=== PATIENT | female | born 1965 | race Caucasian/White ===

== ENCOUNTER 2018-07-25 05:17 | Inpatient (IN) ==
[2018-07-25] MEDS ORDERED: LIDOCAINE W/ SODIUM BICARB 0.5 ML SYR ONE (05:27)
[2018-07-25] MEDS ORDERED: Vancomycin Inj 1gm vial ONE ×3 (05:27→07:02)
[2018-07-25] MEDS ORDERED: Sodium Chloride 0.9% 250 ML ONE ×3 (05:27→06:57)
[2018-07-25] MEDS ORDERED: Lactated Ringers 1,000 ML PRIMARY IV ONE ×4 (05:27→12:50)
[2018-07-25] MEDS ORDERED: Nasal Sanitizer POPSWAB ampule 3 AMP (Nozin) PREOP DOSE ENOS SCH (06:00)
[2018-07-25] MEDS ORDERED: LIDOCAINE W/ SODIUM BICARB 0.5 ML SYR SUBD ONE (06:00)
[2018-07-25] MEDS ORDERED: Clindamycin 900mg (Premix) 900 MG/50 ML BAG IV ONE ×2 (06:33→08:00)
[2018-07-25] MEDS ORDERED: fentaNYL Inj 100 MCG/2 ML VIAL ONE (06:48)
[2018-07-25] MEDS ORDERED: MIDAZOLAM 5 MG/1 ML ONE (06:48)
[2018-07-25] MEDS ORDERED: REMIFENTANIL HCL 2 MG VIAL IV ONE ×3 (06:49→13:57)
[2018-07-25] MEDS ORDERED: ROCURONIUM 10 MG/1 ML - 5 ML VIAL IVP ONE (06:49)
[2018-07-25] MEDS ORDERED: REMIFENTANIL 1 MG/1 ML IV ONE ×3 (06:49→13:57)
[2018-07-25] MEDS ORDERED: KETAMINE HCL 100 MG/2 ML SYRINGE IV ONE (06:50)
[2018-07-25] MEDS ORDERED: Sodium Chloride 0.9% vial 50 ML ONE (07:01)
[2018-07-25] MEDS ORDERED: BACITRACIN 50,000 UNIT VIAL IRRIG ONE (07:02)
[2018-07-25] MEDS ORDERED: Gentamicin Inj 40 MG/ML VIAL ONE (07:02)
[2018-07-25 07:13] LABS: BILIRUBIN,URINE NEGATIVE (NEG); CLARITY,URINE CLEAR (CLEAR); COLOR,URINE YELLOW (Y); GLUCOSE, URINE (UA) NEGATIVE (NEG); OCCULT BLOOD,URINE NEGATIVE (NEG); PROTEIN,URINE NEGATIVE (NEG); UROBILINOGEN,URINE 0.2 EU/dL (0.2)
[2018-07-25 07:14] LABS: URINE SAMPLE TYPE CLEAN CATCH URINE
[2018-07-25] MEDS ORDERED: HYDROXYZINE IM ONE (07:26)
[2018-07-25] MEDS ORDERED: BUPIVACAINE 0.25% W/ EPI - 10 ML VIAL ONE (08:12)
[2018-07-25] MEDS ORDERED: DEXAMETHASONE PF 10 MG/1 ML VIAL ONE (08:25)
[2018-07-25] MEDS ORDERED: PROPOFOL 10 MG/1 ML (200 MG/20 ML) VIAL IV ONE (13:26)
[2018-07-25] MEDS ORDERED: Sodium Chloride 0.9% vial 10 ML ONE (13:56)
--- NOTE | 2018-07-25 14:34 | CRNA.PROGR ---
Anesthesia Time - Procedure/Recovery Time Start Date: 07/25/18 End Date: 07/25/18 Anesthesia : Time In: 07:30 Anesthesia : Time Out: 17:10 Anesthesia : Total Time: 580 - Total Anesthesia Time Total Anesthesia Time (minutes): 580 - Other Weight: 69.853 kg Height: 5 ft 3 in Body Mass Index (BMI): 27.3 Physical Status: P2 Anesthesia Type: General Anesthesia : ET (NIMS Technique)
[2018-07-25] MEDS ORDERED: fentaNYL Inj 100 MCG/2 ML VIAL IVP PRN (14:35)
[2018-07-25] MEDS ORDERED: LIDOCAINE W/ SODIUM BICARB 0.5 ML SYR SUBD PRN (14:35)
[2018-07-25] MEDS ORDERED: ONDANSETRON 4 MG/2 ML VIAL IVP PRN ×2 (14:35→18:54)
[2018-07-25] MEDS ORDERED: ATROPINE SULFATE 0.4 MG/1 ML VIAL IVP PRN (14:35)
[2018-07-25] MEDS ORDERED: Ondansetron ODT Tab 8 MG TAB PO PRN (14:35)
--- NOTE | 2018-07-25 14:35 | CRNA.PROGR ---
Anesthesia Recovery Phase I - Post Anesthesia Evaluation Patient's Condition on Arrival in Phase I: Stable (medicted, post suction and extubation) Patient's Condition on Arrival in Phase II: Stable Pain Level: 5
[2018-07-25] MEDS ORDERED: Lactated Ringers 1,000 ML PRIMARY IV SCH (14:45)
[2018-07-25] MEDS ORDERED: Propofol 1,000 MG/100 ML VIAL IV ONE (14:54)
[2018-07-25] MEDS ORDERED: ONDANSETRON 4 MG/2 ML VIAL ONE (15:04)
[2018-07-25] MEDS ORDERED: BUPivacaine Inj 0.25% PF - 10ml vial ONE (15:14)
[2018-07-25] MEDS ORDERED: BUPivacaine Liposome/PF (Exparel) Inj 20ml vial INFIL ONE (15:14)
[2018-07-25] MEDS: HYDROmorphone 2 MG/1 ML IVP PRN ×6 (17:15→23:56)
[2018-07-25] MEDS ORDERED: HYDROmorphone 2 MG/1 ML ONE ×2 (17:15→17:32)
--- NOTE | 2018-07-25 17:19 | CRNA.PROGR ---
Post Anesthesia Phase II - Post Anesthesia Phase II Patient Stable and Discharged To: Med/Surg Care Assumed By Surgeon: Gio Wang MD Temperature: 97 F Pulse Rate: 72 Respiratory Rate: 14 Blood Pressure: 114/82 Pulse Ox: 97 Total Mary Score at Discharge: 9 Post Anesthesia Discharge Criteria Met: Yes Additional Details: Received Hydromorphone 4 mg and 2.5 mg Diazepam for pain in pacu. Did well to floor.
--- NOTE | 2018-07-25 17:28 | GEN.OPNOTE ---
Operative Note Surgery Date: 07/25/18 Preoperative Diagnosis: 1. Chronic low back pain. 2. Chronic bilateral lower extremity symptoms. 3. Chronic numbness and weakness of the left leg ever since her first lumbar surgical procedure. 4. Widening of the L2-3 facet joints above her L3-4 lumbar interbody and posterolateral instrumented fusion. 5. Status post L4-S1 hardware removal and L3-4 transforaminal lumbar interbody and posterolateral instrumented fusion. 6. Status post L4-S1 interbody and posterolateral instrumented fusion. Postoperative Diagnosis: 1. Chronic low back pain. 2. Chronic bilateral lower extremity symptoms. 3. Chronic numbness and weakness of the left leg ever since her first lumbar surgical procedure. 4. Widening of the L2-3 facet joints above her L3-4 lumbar interbody and posterolateral instrumented fusion. 5. Status post L4-S1 hardware removal and L3-4 transforaminal lumbar interbody and posterolateral instrumented fusion. 6. Status post L4-S1 interbody and posterolateral instrumented fusion. Procedure: 1.) Removal of posterolateral hardware, L3-4. (CPT code: 49340). 2.) Partial laminectomy, L2-3 with medial facetectomies and foraminotomies bilaterally for decompression of the lumbar spinal canal, lateral recesses, and neuroforamen bilaterally. (CPT code: 63203). 3.) Redo laminectomy, L3 with medial facetectomies and foraminotomies bilaterally. (CPT code: 58402). 4.) Arthrodesis, combined posterolateral and posterior interbody technique, L2-3 for interbody and posterolateral fusion L2-3. (CPT code: 29720). 5.) Insertion of an 11mm x 11mm x 28mm Triatanium PL titanium lumbar interbody cage filled in the center with autograft into the L2-3 interspace for fusion of the L2-3 interspace. (CPT code: 31205). 6.) Arthrodesis, posterolateral bilaterally, L3-4 for posterolateral fusion L3-4. (CPT code: 39714). 7.) Segmental posterolateral instrumentation, L2-L4 using LMN-1 Sammy 3 pedicle screw and terrie system. (CPT code: 82300). 8.) Use of autograft harvested from the same incision, cleaned of soft tissue and morselized for interbody and posterolateral fusion. (CPT code: 17560). 9.) Use of medium Medtronic INFUSE bone morphogenic protein (implantable allograft), 2cc [employer] Active Matrix AM200 (implantable allograft), 20cc SteMinor BIO DBM Plus Putty with cancellous (implantable allograft), and 30cc cancellous bone chips (implantable allograft) for interbody and posterolateral fusion. (CPT code: 16603). 10.) Use of LMN-1 computer assisted neuronavigation system for cannulization of the L2 pedicles bilaterally for the subsequent placement of the L2 pedicle screws bilaerally. (CPT code: 57105). 11.) Use of intra-operative fluoroscopy for localization of the correct surgical level, for confirmation of final position of intervertebral cage, and for confirmation of final position of posterolateral hardware elements. 12.) Use of neuromonitoring including free running EMG's, triggered EMG's, and SSEP's. Surgeon: Gio Wang MD Ophthalmic Asst: MARTHA Zaragoza Anesthesia Provider: Asya Hanks CRNA Anesthesia Type: General Estimated Blood Loss (mL): 650 Fluids: See anesthesia record Pathology: None Indications: Ms. 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 In 2011, she underwent an L4-5 and L5-S1 lumbar interbody and posterolateral instrumented fusion by Dr. Pablo. She did well after that surgery. She then became symptomatic with back and leg symptoms and underwent an L4-S1 hardware removal by Dr. Villatoro and an L3-4 interbody and posterolateral instrumented fusion and that was performed in April 2016. Ms. Gutierrez underwent a hardware block by Dr. Gong on April 16, 2018 that relieved her pain almost 100% for 7 days. Ms. Gutierrez came to me wanting her hardware removed. I did discuss at her initial visit, however, with Ms. Gutierrez that based on her lumbar myelogram and post myelogram CT performed at [facility] on 01/17/18 that she did have question of whether she was totally fused at the L3-4 level secondary to some lucency along the superior aspect of the cage and the inferior aspect of the L3 vertebral body although there did appear to be posterolateral fusion mass but not as robust at L4-S1. I also discussed with her that I was concerned that the facet arthropathy at L2-3 above her fused levels which were widened might be causing some of he pain and she did undergo diagnostic L2-3 facet blocks with local anesthetic only which did relief her pain. We discussed proceeding with a L3-4 hardware removal; L2-3 transforaminal lumbar interbody fusion; L2-4 posterolateral instrumented fusion which she wished to undergo and she presents for that procedure today. Findings: 1.) Facet arthropathy/hypertrophy L2-3 bilaterally. 2.) Bilateral L2-3 and L3-4 lateral recess stenosis bilaterally. Complications: Small incidental durotomy sewn up primarily with 6-0 prolene suture Operative Summary: Ms. Gutierrez was met in the preoperative area. Her surgical history and physical was reviewed. The procedure to be performed was confirmed with Ms. Gutierrez and we were in agreement on the procedure to be performed and this matched what was written on the patient's consent form. Any questions that Ms. Gutierrez had were answered before she was taken back to the operating room suite. Ms. Gutierrez was brought back to the operating room suite and put under general anesthesia and intubated by the anesthesia staff. She had a Landrum catheter plac ed in her bladder for the procedure. She had pneumatic compression hose placed on her lower legs bilaterally. Ms. Gutierrez was carefully rolled over onto the Levy surgical table with her arms gently positioned upwards with her shoulders abducted less than 90. Her arms were well-padded with foam padding on top of the padding the surgical armboards. The region of her chest and axilla was checked bilaterally to make sure that there no pressure points over the region of the brachial plexus bilaterally. Her breasts were checked be below the chest pad of the Levy table with no pressure points over the nipples. All bony prominences were well padded. Her Landrum catheter was checked be free from kinks. Her pneumatic compression hose was attached and pneumatic compression device. Mr. Gutierrez's incision from her previous surgeries was demarcated with a skin marker and extended rostrally in order to expose the intended surgical level as well as the hardware from her previous lumbar fusion. Ms. Gutierrez was prepped and draped in the usual and standard fashion. Ms. Gutierrez had been given 180 mL of 1 g of vancomycin in 250 mL IV for justine-operative antibiosis but this was stopped when she started to develop a progressively worsening skin rash. She was given 900 mg of Cleocin IV for perioperative antibiosis. She was given 10 mg of Decadron IV. A standard surgical timeout was performed identifying the correct patient, the correct procedure, and the correct equipment being available for the procedure. The intended skin incision was injected subcutaneously with quarter percent Marcaine with 1 in 200,000 epinephrine. 20 mL of local anesthetic was used. This skin was incised with a 10 blade scalpel and all dermal and superficial subcutaneous bleeding points were controlled with bipolar cautery. Dissection was continued through the subcutaneous tissue and scar tissue with Bovie cautery down to the lumbar fascia. The lumbar fascia was incised with Bovie cautery along the spinous processes and out over the lamina in the rostral aspect of the surgical dissection in the normal tissue planes. In the more caudal aspect of the surgical site, in the region of the patient's previous surgery, the dissection was taken out laterally earlier as the dissection proceeded ventrally to avoid entry into any previous decompressed areas of the spinal canal. The patient's hardware was identified laterally. Continued dissection was performed exposing from the L1 lamina, the L2 lamina, and out over the L1-2 facet joint bilaterally and out laterally over the L2 transverse process bilaterally. The patient's L3-4 hardware elements were dissected out bilaterally using Bovie cautery and a large Leksell rongeur. Dissection was then continued laterally to the hardware construct out over the L3 and L4 transverse processes bilaterally. Soft tissue was cleaned over the posterior aspect of the spine in the normal tissue planes of the rostral part of the surgical dissection using a large straight curette and large Leksell rongeur. And the caudal aspect of the surgical dissection and the region the patient's previous surgery the hardware was completely dissected out as stated. There was bone product found medial to the hardware elements bilaterally that was coalesced bone product but that was not fully solidified into bone. The patient's set screws over the rods in the tulips of the L3 and L4 pedicle screws were removed bilaterally. The rods were then removed. The L3 and L4 pedicle screws were then gently tugged on bilaterally with visual inspection to determine whether there was any movement between the L3 and L4 levels and none was identified. Soft tissues/carts tissue was removed from beneath where the rods had been between the pedicle screws. There was no bone identified on the left consistent with the imaging studies demonstrating what appeared to be a complete foraminotomy at this level to removal of the overlying facet joint. There was bone identified however on the right between the pedicle screws. Extensive decortication was then performed of the L2 transverse processes bilaterally and the lateral aspect of the L1-2 facet joints bilaterally and of the L3 and L4 transverse processes bilaterally as well as the bone between the L3 and L4 pedicle screw on the right and the bone that had been exposed below the L4 pedicles bilaterally. All decortication was performed with the [employer] high-speed [place] drill with a matchstick bit. The bone dust created was collected and saved to be used as autograft during the fusion portion of the procedure. The LMN-1 neuro navigation reference arc was securely attached to the L1 spinous process and a spin was performed with the be2 3-D fluoroscopy unit. The LMN-1 neuro navigation pedicle finder was then used to cannulate the L2 pedicles bilaterally. The internal aspect of the L2 pedicles were palpated with a small ball-tip instrument. The pedicles were small, measuring only about 5.5 mm bilaterally and therefore 4.5 mm x 45 mm length pedicle screws were planned to be placed in the pedicles. Because the small screw diameter of the pedicles were not tapped and the 4.5 x 45 mm pedicle screws were placed into the L2 pedicles bilaterally. The pedicle screws obtained good purchase in the pedicle and vertebral body bone. Pedicle screws were then all interrogated with tr iggered EMGs with the lowest recording being the right L4 pedicle screw which was 21 mA in impedance indicating that the pedicle screws were indeed not and proximity to nerve structures. Another spin was performed with the [employer] 3-D fluoroscopy unit providing further confirmation of the pedicle screws were contained within the confines of the pedicles and the pedicle screws were bicortical or nearly and bicortical in purchase as intended. A partial L2 laminectomy with medial facetectomies and foraminotomies was performed with a high-speed drill with a matchstick bit as well as with various size Kerrison punches. A small durotomy occurred in the left posterior aspect of the dura measuring approximately 4 mm. This was sewn up primarily with 6-0 Prolene suture in a running locking fashion. It appeared that the dura on this side was adhered to the ligament into the bony canal likely from her previous injection as this was rostral to the scar tissue from the patient's previous surgery, but upon removing some additional L2 lamina rostrally to provide the access needed for the repair of the durotomy, the dura did have to be from its attachments to the ventral aspect of the lamina with a up angled curette. During the decompression at the L2 level there was significant bilateral lateral recess encountered secondary to bony arthropathy and ligamentous hypertrophy greater in degree than expected based on the preoperative imaging. This clearly produced lateral recess stenosis bilaterally which was decompressed with a high- speed drill with a matchstick bit as well as with various size Kerrison punches. Dissection was then continued caudally into the transition zone into the scar tissue from the patient's previous surgery. The remaining aspect of the L3 lamina was encountered and and L3 laminectomy with medial facetectomies and foraminotomies was performed and again bilateral lateral recess stenosis was encountered in this region secondary to bony arthropathy and ligamentous hypertrophy. Thickened ligament over the dura was removed down to where the patient's previous L4 and L5 L4 and L5 laminectomies had been previously performed from the patient's first lumbar fusion procedure. The spinal canal lateral recesses and neuroforamen were now completely decompressed as assured by visual inspection as well as by palpation with the Hayley instrument in the canal in the lateral recesses and around the nerve structures including passing the instrument above and below the exiting nerve roots as they exited their neuroforamen and above and below the transversing nerve roots as a transversed medial to their pedicles. Soft tissue was dissected adjacent to the takeoff of the L3 nerve roots bilaterally identifying the L5-3 disc space bilaterally. Very enlarged epidural veins were encountered over the disc space bilaterally with these large veins being very engorged. They were coagulated with bipolar cautery and cut with microscissors. There was a prominent subligamentous disc protrusion extending across the canal at this level but more prominent on the left. The medial facetectomy at L2-3 on the left was extended laterally to provide the proper exposure needed for the intervertebral cage placement for the interbody fusion portion of the procedure. This was performed with a high-speed drill with a matchstick bit. A Beverly nerve root retractor was used to gently retract the thecal sac and the transversing L3 nerve root and an annulotomy was performed in the L2-3 disc space on the left using a 15 blade scalpel. Disc material was removed with a pituitary rongeur. Additional disc and cartilaginous endplate was loosened and removed in the disc space using the K2 disc space raúl from a size 7 mm disc space shaver to a size 10 mm disc space shaver in 1 mm increments. Disc material was removed from the disc space with a pituitary rongeur between each of the disc space shavings. An Topher down-biting DBM plus putty with cance llus was placed into the interspace and moved anteriorly with a bone tamp. The appropriate size lumbar interbody cage was then selected. A 11 mm x 11 mm x 28 mm Tritanium PL titanium lumbar interbody cage was then selected and filled in the center with autograft and inserted into the L2-3 interspace with the hydraulic technician. The cage was gently countersunk and rotated with a bone tamp and mallet. The cage obtained good purchase between the L2 and L3 endplates. The final position of the cage was confirmed with lateral fluoroscopy. Attention was turned back to the instrumentation portion of the procedure. Two 6 mm x 70 mm pre-bent lordotic Sammy 3 titanium rods were then selected and placed in the tulips of the L2, L3, and L4 pedicle screws bilaterally and then set screws were placed over the rods in the tulips of the L2, L3, L4 pedicle screws bilaterally. Set screws were first tightened down hand tight but they were then tightened down to their final tightness using the torque counter torque device. 2 43 x 54 mm cross-links were then placed across the hardware construct with one cross-link being placed between the rods between the L2 and L3 pedicle screws and the other placed between the rods between the L3 and L4 pedicle screws. The crossings were tightened down over the rods "squeaky tight" and tightened with "squeaky tight" in the center of the cross-links as well. The surgical site was irrigated with bacitracin irrigation. The surgical site was then irrigated with hydrogen peroxide solution. The surgical site was then pulse lavaged with 3 L of bacitracin/gentamicin solution. The strips of medium Med[employer] InFUSE bone morphogenic protein (implantable allograft) were then placed lateral to the hardware construct over the L2 L3 L4 transverse processes bilaterally as well as over the exposed arthrodesed bone below the L4 pedicle screws bilaterally. 15 mL of cancellus bone chips (implantable allograft) was then placed lateral to the hardware construct over the infuse strips from the L2 transverse processes to the L4 transverse processes and over the exposed arthrodesed bone below the L4 pedicle screws bilaterally. A mixture of 2 mL of [employer]. Active Matrix AM200 amniotic growth factors diluted to 8 mL with saline was then dripped over the cancellous bone product bilaterally using approximately 2.5 mL of a mixture on each side. 10 mL of LMN-1 BIO DBM Plus Putty with cancellous (implantable allograft) was then placed on each side lateral to the hardware construct over the cancellous bone chips from the L2 transverse process to the L3-4 transverse process and caudally down over the bone that had been exposed arthrodesed caudal to the L4 pedicles bilaterally. The canal and lateral recesses were inspected for any bone fragments. Any identified were removed. The canal lateral recesses were irrigated with a small bound with bacitracin irrigation which was removed by suction. A piece of trimmed DuraGen dural matrix was then placed over the durotomy repair and then the DuraGen was completely sealed into place over the dura using a tube of Tisseel tissue sealant. This covered the entire exposed thecal sac as well as filling the lateral recesses bilaterally. A piece of compressed Gelfoam was then placed over the exposed canal between the cross-links. The Gelfoam was then completely covered with FloSeal hemostatic agent. The closure portion of the procedure was begun. The keith of the dissection plane were then inspected for any bleeding points. None were identified. The surgical site was quite dry. The fascia was closed tightly with #1 Vicryl suture in an interrupted fashion. The surgical site was then pulse lavaged with a small amount to remaining bacitracin/gentamicin solution. A medium Hemovac drain was then placed over the fascia. The deep subcutaneous tissue and fascia was then closed over the Hemovac drain using #1 Vicryl suture in an interrupted fashion. The more superficial subcutaneous tissue was reapproximated with 2-0 Vicryl suture in an interrupted fashion. The dermis and superficial subcutaneous tissue was reapproximated with 3-0 Vicryl suture in an inverted interrupted fashion. The Ioban drape was pulled back from the skin edges. The final layer of closure was performed surgical stainless steel allie. The incision was cleansed with bacitracin soaked sponge and dried with a sterile dry sponge. The incision was dressed with a covered her dressing. The surgical drain was secured with suture. The drain site was dressed. All surgical drapes removed from Ms. Dumont. She was carefully rolled over onto the PACU stretcher. She was awoken and extubated by the anesthesia staff. She was taken to the recovery room in stable condition. All surgical counts reported as correct by the scrub and circulating personnel. A physician's wet process assistant head miller, Mrs. Adeline Nguyen PA-C, assisted with the procedure including the exposure and closure portions of the procedure. She provided irrigation and suctioning throughout the procedure. She skillfully and carefully retracted the nerve structures during the more critical portions of the procedure such as the discectomy and intervertebral cage placement portions of the procedure.
[2018-07-25] MEDS: DIAZEPAM 10 MG/2 ML (5 MG/1 ML) CARPUJECT IVP ONE ×2 (18:15→19:18)
[2018-07-25] MEDS ORDERED: DIAZEPAM 10 MG/2 ML (5 MG/1 ML) CARPUJECT ONE (18:16)
[2018-07-25] MEDS ORDERED: BISACODYL 5 MG TABLET PO PRN (18:54)
[2018-07-25] MEDS ORDERED: DOCUSATE 100 MG CAPSULE PO PRN (18:54)
[2018-07-25] MEDS ORDERED: PROMETHAZINE 25 MG/1 ML VIAL IM PRN (18:54)
[2018-07-25] MEDS ORDERED: MAGNESIUM 400 MG/5 ML - 30 ML (MILK OF MAGNESIA) PO PRN (18:54)
[2018-07-25] MEDS ORDERED: MAGNESIUM CITRATE 296 ML SOLUTION PO PRN (18:54)
[2018-07-25] MEDS ORDERED: Ondansetron ODT Tab 4 MG TAB PO PRN (18:54)
[2018-07-25] MEDS ORDERED: Fleet Enema 133ml RECTAL PRN (18:54)
[2018-07-25] MEDS ORDERED: DIAZEPAM 10 MG/2 ML (5 MG/1 ML) CARPUJECT IVP ONE (19:00)
--- NOTE | 2018-07-25 19:28 | NEURO.PROG ---
Subjective Post Op Day: 0 Pain Management: IV Landrum Catheter: Yes Additional Details: Asleep in room on med/surg floor. Was seen in PACU waking from anesthesia and moving all extremities. PLAN: 1.) Continue post-operative antibiotics. 2.) Continue post-operative pain control. 3.) Advance diet. 4.) Flat in bed until Monday morning for healing of incidental durotomy during surgery. Objective : Data - Vital Signs Vital Signs and I&O: Vital Signs - Last Taken Temperature 97.8 F 07/25/18 17:45 Pulse Rate 89 07/25/18 18:40 Respiratory Rate 11 L 07/25/18 18:40 Blood Pressure 119/72 07/25/18 18:40 Pulse Ox 99 07/25/18 18:40 Intake and Output (24hr x 4 totals) 07/23/18 07/24/18 07/25/18 07/26/18 05:59 05:59 05:59 05:59 Intake Total 4500 / 4500 Output Total 1730 / 1730 Balance 2770 / 2770
[2018-07-25] MEDS ORDERED: HYDROXYZINE PAMOATE 25 MG CAPSULE PO PRN (20:00)
--- NOTE | 2018-07-25 20:18 | PDOC ---
HPI - History of Present Illness Date of Service: 07/25/18 Time of Service: 20:11 Chief Complaint: Back pain History of Present Illness: This very pleasant 52-year-old female who is postoperative after having hardware removal and an interbody fusion done by Dr. Wang today, please see his surgical note regarding procedures performed. She has had chronic back pain and responded well to some hardware blocks so she opted for some hardware removal. She had had initial back surgery after an injury at work lifting a heavy patient at work in 2010. Currently she is still somewhat somnolent from her anesthesia, but does arouse to touch stimuli. Her hearing is very poor and she's had cochlear implants and it's difficult to communicate because of her hearing loss. She does not voice any complaints at this time. She just recently got some Valium for muscle spasm and discomfort and it seems to have helped her symptoms. She did have a dural tear that was recognized that surgery and repaired. She has had about 650 mL of blood loss overall. But her blood pressures are currently maintained and she does not show any signs of hemodynamic instability at this time. To my knowledge in review of her medical history, she has not had any symptoms consistent with heart failure or coronary artery disease. Past Medical History Medical History: 1. Rheumatoid arthritis. 2. Fibromyalgia. 3. Insomnia. 4. Chronic back pain. 5. Generalized anxiety disorder. 6. Multiple allergies Surgical History: 1. Back surgery. 2. Cochlear implant. 3. Clavicle fracture repair Pertinent Family History: History of dementia for her mother and heart attack for her father Past Social History: Does not smoke or drink alcohol. Lives in [place], [place]. Tobacco Use: Never Smoker In the Past 12 Months, Have Used or Abuse Any of the Following Substance: None Alcohol Use: None Medication / Allergies Home Medications: Home Medications Medication Instructions Recorded Confirmed Type amitriptyline 50 mg tablet 50 mg PO QHS 05/15/18 07/24/18 History escitalopram 20 mg tablet 20 mg PO QDAY 05/15/18 07/24/18 History hydroxyzine HCl 25 mg tablet 25 mg PO QID PRN 05/15/18 07/25/18 History lidocaine 1.8 % topical patch 1 patch TOPICAL QDAY 05/15/18 07/24/18 History tramadol 50 mg tablet 50 mg PO Q6H 05/15/18 07/24/18 History trazodone 50 mg tablet 100 mg PO QDAY 05/15/18 07/24/18 History hydrocodone 5 mg-acetaminophen 325 2 tab PO Q4-6H PRN #90 tab 07/10/18 07/25/18 Rx mg tablet Allergies/Adverse Reactions: Allergies Allergy/AdvReac Type Severity Reaction Status Date / Time amoxicillin [From Augmentin] Allergy Rash Verified 07/24/18 08:21 benzonatate Allergy Anaphylaxis Verified 07/24/18 08:21 [From Tessalon Perles] cefaclor [From Ceclor] Allergy Rash Verified 07/24/18 08:21 clavulanic acid Allergy Rash Verified 07/24/18 08:21 [From Augmentin] meperidine [From Demerol] Allergy Anaphylaxis Verified 07/25/18 05:55 morphine Allergy Rash Verified 07/25/18 05:55 NSAIDS (Non-Steroidal Allergy Rash Verified 07/24/18 08:21 Anti-Inflamma Sulfa (Sulfonamide Allergy Anaphylaxis Verified 07/25/18 05:55 Antibiotics) sulfamethoxazole Allergy Rash Verified 07/24/18 08:21 [From Bactrim] trimethoprim [From Bactrim] Allergy Rash Verified 07/24/18 08:21 vancomycin Allergy Rash Verified 07/25/18 14:47 wheat Allergy Rash Verified 07/24/18 08:21 Review of Systems - Review of Systems ROS Unobtainable: Due to Mental Status (Due to Valium, postoperative anesthesia effects, the patient is quite sedated and her hearing is very poor, and so it is difficult to obtain a review systems at this time.) Exam - Vitals Vital Signs: Vital Signs Temperature 97.8 F Temperature Source Temporal Artery Scan Pulse Rate 89 Respiratory Rate 11 Blood Pressure 119/72 Pulse Ox 99 Oxygen Flow Rate 3lnc Height 5 ft 3 in Weight 154 lb - General General Appearance: No Acute Distress - Head Head Exam: Normal Inspection, Atraumatic - Eye Eye Exam: POSITIVE: No Scleral Icterus - ENT ENT Exam: POSITIVE: Mucous Membranes Moist - Respiratory Respiratory Exam: POSITIVE: Clear to Auscultation - Bilaterally, Breathing Non Labored - Cardiovascular Cardiovascular Exam: POSITIVE: RRR, No Murmur, No Clicks, No Gallops, No Rubs, No JVD - GI/Abdominal GI/Abdominal Exam: POSITIVE: Non Tender, Non Distended, Soft - Rectal Rectal Exam: POSITIVE: Deferred - External Exam: POSITIVE: Deferred Exam: POSITIVE: Deferred - Extremities Extremities Exam: POSITIVE: No Clubbing Present, No Edema Present, No Cyanosis Present - Neurological Neurological Exam: POSITIVE: Alert Additional Neurological Exam Details: Lying flat on back currently. Results - Labs Additional Lab Results: I looked at the urinalysis and it is negative at this time. Assessment and Plan - Patient Problems (1) Rheumatoid arthritis Current Visit: No Status: Chronic Code(s): M06.9 - Rheumatoid arthritis, unspecified (2) Fibromyalgia Current Visit: No Status: Chronic Code(s): M79.7 - Fibromyalgia (3) Insomnia Current Visit: No Status: Chronic Code(s): G47.00 - Insomnia, unspecified (4) Chronic back pain Current Visit: No Status: Chronic Code(s): M54.9 - Dorsalgia, unspecified; G89.29 - Other chronic pain Qualifiers: Back pain location: low back pain Back pain laterality: midline Sciatica presence: with sciatica Sciatica laterality: bilateral sciatica Qualified Code(s): M54.41 - Lumbago with sciatica, right side (5) Arthritis Current Visit: No Status: Chronic Code(s): M19.90 - Unspecified osteoarthritis, unspecified site (6) Anxiety Current Visit: No Status: Chronic Code(s): F41.9 - Anxiety disorder, unspecified (7) Status post lumbar surgery Current Visit: Yes Status: Acute Code(s): Z98.890 - Other specified postprocedural states - Assessment / Plan Additional Assessment/Plan Details: The patient is admitted for postoperative care. We will try to continue patient on her same home medications. Pain control as per neurosurgery and DVT prophylaxis as per neurosurgery. Patient to remain flat due to her subdural tear and repair as per neurosurgery until Monday. We will be glad as the hospitalist service to continue to help evaluate and manage medical issues during the patient's hospital stay.
[2018-07-25] MEDS: HYDROmorphone 2 MG TABLET PO PRN ×2 (20:37→23:56)
[2018-07-25] MEDS: Prochlorperazine Edisylate Inj 10mg/2ml vial IVP PRN (20:37)
[2018-07-25] MEDS: Dexamethasone Tab 4 MG TABLET PO SCH ×2 (20:47→23:56)
[2018-07-25] MEDS: AMITRIPTYLINE 25 MG TABLET PO SCH (20:51)
[2018-07-25] MEDS: Clindamycin 900mg (Premix) 900 MG/50 ML BAG IV SCH (21:05)
[2018-07-25] MEDS: traZODone Tab 50 MG TAB PO SCH (22:22)
[2018-07-25] MEDS: SILVER SULFADIAZINE 1% 25 GM CREAM TOPICAL SCH (23:56)
[2018-07-25] MEDS ORDERED: SILVER SULFADIAZINE 1% 25 GM CREAM TOPICAL ONE (23:58)
[2018-07-26] MEDS ORDERED: LIDOCAINE HCL 2 % 10 ML JELLY URO-JECT TOPICAL PRN (01:12)
[2018-07-26] MEDS: HYDROmorphone 2 MG TABLET PO PRN ×5 (03:39→20:30)
[2018-07-26] MEDS: Clindamycin 900mg (Premix) 900 MG/50 ML BAG IV SCH (03:40)
[2018-07-26] MEDS: HYDROmorphone 2 MG/1 ML IVP PRN ×3 (05:16→20:04)
[2018-07-26 05:29] LABS: BASOPHILS # (AUTO) 0 10*3/UL; BASOPHILS % (AUTO) 0 % (0-1); EOSINOPHILS # (AUTO) 0 10*3/UL; EOSINOPHILS % (AUTO) 0 % (0-8); Hemoglobin [HGB] 8.3 g/dL (12.0-16.0); LYMPHOCYTES # (AUTO) 0.69 10*3/uL; MEAN CORPUSCULAR HEMOGLOBIN 30.2 PG (27-31); MEAN CORPUSCULAR HGB CONC 31.9 g/dL (33-37); MEAN CORPUSCULAR VOLUME 94.5 FL (81-99); MEAN PLATELET VOLUME 9.8 FL (7.4-12.2); MONOCYTES # (AUTO) 0.46 10*3/UL (0.3-0.8); MONOCYTES % (AUTO) 5.4 % (5-15); NEUTROPHILS # (AUTO) 7.31 10*3/UL; NEUTROPHILS % (AUTO) 86.3 % (50-80); RED BLOOD COUNT 2.75 10^6/uL (4.20-5.40)
[2018-07-26 05:36] LABS: BLOOD UREA NITROGEN 18 mg/dL (7-22); BUN/CREATININE RATIO 25.71 (6-20)
[2018-07-26 05:41] LABS: PLATELET MORPHOLOGY COMMENT NORMAL MORPHOLOGY (NORM); RBC MORPHOLOGY COMMENT NORMAL MORPHOLOGY (NORM); WBC MORPHOLOGY COMMENT NORMAL MORPHOLOGY (NORM)
--- NOTE | 2018-07-26 07:24 | NEURO.PROG ---
Subjective Post Op Day: 1 Pain Management: PO Landrum Catheter: No Flatus: No Diet: Regular Ambulating: No Objective : Data - Labs CBC and BMP: 07/26/18 04:59 07/26/18 04:59 - Vital Signs Vital Signs and I&O: Vital Signs - Last Taken Temperature 97.3 F 07/26/18 03:53 Pulse Rate 84 07/26/18 03:53 Respiratory Rate 10 L 07/26/18 03:53 Blood Pressure 97/63 07/26/18 03:53 Pulse Ox 96 07/26/18 05:00 Intake and Output (24hr x 4 totals) 07/24/18 07/25/18 07/26/18 07/27/18 05:59 05:59 05:59 05:59 Intake Total 5535 / 5535 Output Total 2180 / 2180 Balance 3355 / 3355
--- NOTE | 2018-07-26 07:37 | NEURO.PROG ---
Subjective Post Op Day: 1 Pain Management: PO Odell Catheter: No Diet: Regular Ambulating: No Additional Details: Domenica is lying flat in bed, awake and alert and moving all extremities. She says she has minute tingling pain in her inner left thigh as before surgery as well as numbness from the knee down, all on the left. Her bilateral knee flexion, dorsi and plantar flexion are all stronger than preop. Her pain has been well controlled with dilaudid. She has not complained of a headache. Her incision has minimal serosanguinous drainage and her drain output was 30ml since surgery. Plan 1. Keep flat in bed until Monday morning 2. Maintain sequential compression devices continually 3. Discontinue drain 4. Continue odell catheter until able to be up Objective : Data - Labs CBC and BMP: 07/26/18 04:59 07/26/18 04:59 - Vital Signs Vital Signs and I&O: Vital Signs - Last Taken Temperature 97.3 F 07/26/18 03:53 Pulse Rate 84 07/26/18 03:53 Respiratory Rate 10 L 07/26/18 03:53 Blood Pressure 97/63 07/26/18 03:53 Pulse Ox 96 07/26/18 05:00 Intake and Output (24hr x 4 totals) 07/24/18 07/25/18 07/26/18 07/27/18 05:59 05:59 05:59 05:59 Intake Total 5535 / 5535 Output Total 2180 / 2180 Balance 3355 / 3355
[2018-07-26] MEDS: PANTOPRAZOLE 40 MG TABLET PO SCH (07:40)
[2018-07-26] MEDS: Dexamethasone Tab 4 MG TABLET PO SCH ×3 (07:41→20:06)
--- NOTE | 2018-07-26 08:13 | CRNA.PROGR ---
Anesthesia Note - Progress Notes Anesthesia Progress Note: Cheerful as she can be lying flat. She's at increased risk for CSF leak so until 07/27/18 she's to be flat. No nausea. Mentation clear. Pain under control overnight received 2 doses of Dilaudid overnight. Abnormal Lab Results (Last 24 Hours) Range/Units 07/26/18 07/26/18 04:59 04:59 RBC (4.20-5.40) 10^6/uL 2.75 L Hgb (12.0-16.0) g/dL 8.3 L Hct (37.0-47.0) % 26.0 L MCHC (33-37) g/dL 31.9 L Neut % (Auto) (50-80) % 86.3 H Lymph % (Auto) (10-50) % 8.1 L BUN/Creatinine Ratio (6-20) 25.71 H Glucose (78-110) mg/dL 138 H Calculated Osmolality (267-292) mOsm/kg 293.0 H Calcium (8.7-10.7) mg/dL 7.9 L Vital Signs - Last Taken Temperature 98.1 F 07/26/18 08:04 Pulse Rate 91 07/26/18 08:04 Respiratory Rate 16 07/26/18 08:04 Blood Pressure 94/52 07/26/18 08:04 Pulse Ox 93 07/26/18 08:04 Pleased with her post operative course. No apparent anesthetic difficulties.
[2018-07-26] MEDS: ESCITALOPRAM 10 MG TABLET PO SCH (09:23)
[2018-07-26] MEDS ORDERED: Sodium Chloride 0.9% 500 ML PRIMARY IV ONE (09:32)
[2018-07-26] MEDS ORDERED: diphenhydrAMINE 25 MG CAPSULE PO ONE (09:32)
[2018-07-26] MEDS ORDERED: ACETAMINOPHEN 325 MG TABLET PO ONE (09:32)
[2018-07-26] MEDS: LIDOCAINE 700 MG PATCH TOPICAL SCH ×2 (09:33→20:04)
[2018-07-26] MEDS: SILVER SULFADIAZINE 1% 25 GM CREAM TOPICAL SCH ×2 (09:33→22:44)
[2018-07-26] MEDS: diphenhydrAMINE 50 MG/1 ML VIAL IVP PRN ×2 (11:53→13:46)
[2018-07-26] MEDS ORDERED: HYDROXYZINE PAMOATE 25 MG CAPSULE PO ONE (12:53)
[2018-07-26] MEDS: DIAZEPAM 5 MG TABLET PO PRN ×2 (13:44→20:03)
--- NOTE | 2018-07-26 14:10 | PDOC(PROG) ---
Date of Service: 07/26/18 Time of Service: 14:08 Interval History: No nausea and no vomiting. No lightheadedness. Denies chest pain or shortness breath. States that she is normally hypotensive into the systolics of 70s postoperative so she feels that her blood pressures doing well and she does not want a blood transfusion at this time. Objective : Data - Labs CBC and BMP: 07/26/18 04:59 07/26/18 04:59 Objective : Exam - General General Appearance: No Acute Distress, Cooperative Additional General Exam Details: Vital Signs - Last Taken Temperature 97.8 F 07/26/18 12:52 Pulse Rate 106 H 07/26/18 12:52 Respiratory Rate 16 07/26/18 12:52 Blood Pressure 108/67 07/26/18 12:52 Pulse Ox 94 07/26/18 12:52 - Eye Eye Exam: No Scleral Icterus - ENT ENT Exam: Mucous Membranes Moist - Neck Neck Exam: JVP is not Raised - Respiratory Respiratory Exam: Clear to Auscultation - Bilaterally, Breathing Non Labored - Cardiovascular Cardiovascular Exam: RRR, No Murmur, No Clicks, No Gallops, No Rubs, No JVD - GI/Abdominal GI/Abdominal Exam: Normal Bowel Sounds, Non Tender, Non Distended, Soft - Extremities Extremities Exam: No Clubbing Present, No Edema Present, No Cyanosis Present - Neurological Neurological Exam: Alert, Oriented x 3, No Facial Droop, Speech Intact / Clear, Moves All Extremities Equally - Psychiatric Psychiatric Exam: Normal Affect, Normal Mood Assessment and Plan - Patient Problems (1) Rheumatoid arthritis Current Visit: Yes Status: Chronic Code(s): M06.9 - Rheumatoid arthritis, unspecified Qualifiers: Rheumatoid arthritis location: unspecified site Rheumatoid factor presence: unspecified presence Qualified Code(s): M06.9 - Rheumatoid arthritis, unspecified (2) Fibromyalgia Current Visit: Yes Status: Chronic Code(s): M79.7 - Fibromyalgia (3) Insomnia Current Visit: Yes Status: Chronic Code(s): G47.00 - Insomnia, unspecified Qualifiers: Insomnia type: unspecified Qualified Code(s): G47.00 - Insomnia, unspecified (4) Chronic back pain Current Visit: Yes Status: Chronic Code(s): M54.9 - Dorsalgia, unspecified; G89.29 - Other chronic pain Qualifiers: Back pain location: low back pain Back pain laterality: midline Sciatica presence: with sciatica Sciatica laterality: bilateral sciatica Qualified Code(s): M54.41 - Lumbago with sciatica, right side (5) Arthritis Current Visit: Yes Status: Chronic Code(s): M19.90 - Unspecified osteoarthritis, unspecified site (6) Anxiety Current Visit: Yes Status: Chronic Code(s): F41.9 - Anxiety disorder, unspecified (7) Status post lumbar surgery Current Visit: Yes Status: Acute Code(s): Z98.890 - Other specified postprocedural states - Assessment / Plan Additional Assessment/Plan Details: Stop blood transfusion. Continue Benadryl and Vistaril for itching. Patient had a reaction to vancomycin so we'll stop that. With the dural issues, as per neurosurgery, flat in bed until Monday. Hemoglobin and hematocrit in the morning. No change to medications from home.
[2018-07-26] MEDS: HYDROXYZINE PAMOATE 25 MG CAPSULE PO PRN ×2 (17:19→20:04)
[2018-07-26] MEDS: Prochlorperazine Edisylate Inj 10mg/2ml vial IVP PRN (20:04)
[2018-07-26] MEDS ORDERED: HYDROmorphone 2 MG TABLET PO ONE (20:18)
[2018-07-26] MEDS: AMITRIPTYLINE 25 MG TABLET PO SCH (20:29)
[2018-07-26] MEDS: traZODone Tab 50 MG TAB PO SCH (22:44)
[2018-07-26] MEDS: Patch Removal PATCH TRANSDERM SCH (22:45)
[2018-07-27] MEDS: HYDROmorphone 2 MG TABLET PO PRN ×5 (00:20→20:11)
[2018-07-27] MEDS: Dexamethasone Tab 4 MG TABLET PO SCH ×4 (00:21→19:42)
[2018-07-27] MEDS: Acetaminophen 1000mg Inj 1,000 MG/100 ML VIAL IV PRN ×3 (00:22→20:12)
[2018-07-27] MEDS: HYDROXYZINE PAMOATE 25 MG CAPSULE PO PRN ×3 (00:48→20:10)
[2018-07-27] MEDS: DIAZEPAM 5 MG TABLET PO PRN (05:13)
[2018-07-27 05:23] LABS: Hematocrit [HCT] 25.4 % (37.0-47.0); Hemoglobin [HGB] 8.2 g/dL (12.0-16.0); MEAN CORPUSCULAR HEMOGLOBIN 30.3 PG (27-31); MEAN CORPUSCULAR HGB CONC 32.3 g/dL (33-37); MEAN CORPUSCULAR VOLUME 93.7 FL (81-99); RED BLOOD COUNT 2.71 10^6/uL (4.20-5.40)
--- NOTE | 2018-07-27 07:10 | NEURO.PROG ---
Subjective Post Op Day: 2 Pain Management: PO Odell Catheter: Yes Flatus: Yes Diet: Regular Ambulating: No Additional Details: This morning Domenica is awake, alert and in good spirits. Her pain from last evening is much improved with the combination of dilaudid and IV Tylenol. She denies headache. She is afebrile and her V/S are stable. Her bilateral hip flexion is strong and her dorsi and plantar flexion are also strong bilaterally. The inner thigh pain persists. She does report a bilateral lateral thigh numbness that is new. Her venous duplex was negative for DVT. She has been up in her room and in the chau after her duplex and denies symptoms of lightheadness or dizziness in relation to her H&H of 8.2/25.4. She is hoping for discharge home tomorrow. Plan is discontinue odell catheter and mobilize today. I have spoken with Dr. Wang this morning regarding her progress. Objective : Data - Labs CBC and BMP: 07/27/18 05:15 07/26/18 04:59 - Vital Signs Vital Signs and I&O: Vital Signs - Last Taken Temperature 98 F 07/27/18 05:00 Pulse Rate 91 07/27/18 05:00 Respiratory Rate 20 07/27/18 05:00 Blood Pressure 94/69 07/27/18 05:00 Pulse Ox 92 07/27/18 05:00 Intake and Output (24hr x 4 totals) 07/25/18 07/26/18 07/27/18 07/28/18 05:59 05:59 05:59 05:59 Intake Total 5535 / 5535 2110 / 2110 Output Total 2180 / 2180 4700 / 4700 Balance 3355 / 3355 -2590 / -2590
[2018-07-27] MEDS: PANTOPRAZOLE 40 MG TABLET PO SCH (07:23)
[2018-07-27] MEDS: ESCITALOPRAM 10 MG TABLET PO SCH (08:51)
[2018-07-27] MEDS: SILVER SULFADIAZINE 1% 25 GM CREAM TOPICAL SCH ×2 (08:52→20:15)
[2018-07-27] MEDS: Patch Removal PATCH TRANSDERM SCH ×2 (08:53→20:14)
[2018-07-27] MEDS: LIDOCAINE 700 MG PATCH TOPICAL SCH (08:54)
--- NOTE | 2018-07-27 09:25 | DI ---
US Veins, NIKKI/LETICIA Durbin,07/27/2018 7:12 AM: Clinical History: Bilateral lower extremity pain and swelling. Previous Exam: None at this facility. Findings: Multiple grayscale and color Doppler sonographic images are obtained through the deep veins of both l ower extremities, and demonstrate complete coaptation upon graded compression throughout. There is no evidence of echogenic thrombus. There is normal respiratory variation and augmentation. Impression: No evidence of deep venous thrombosis.
--- NOTE | 2018-07-27 13:44 | PDOC(PROG) ---
Date of Service: 07/27/18 Time of Service: 10:15 Interval History: No chest pain, shortness breath, nausea or vomiting. Patient states surgical back pain is controlled, but pain prior to surgery is resolved. Objective : Data - Labs CBC and BMP: 07/27/18 05:15 07/26/18 04:59 Objective : Exam - General General Appearance: No Acute Distress, Cooperative Additional General Exam Details: Vital Signs - Last Taken Temperature 98.4 F 07/27/18 12:31 Pulse Rate 95 07/27/18 12:31 Respiratory Rate 20 07/27/18 12:31 Blood Pressure 111/67 07/27/18 12:31 Pulse Ox 98 07/27/18 12:31 - Eye Eye Exam: No Scleral Icterus - ENT ENT Exam: Mucous Membranes Moist - Neck Neck Exam: JVP is not Raised - Respiratory Respiratory Exam: Clear to Auscultation - Bilaterally, Breathing Non Labored - Cardiovascular Cardiovascular Exam: RRR, No Murmur, No Clicks, No Gallops, No Rubs, No JVD - GI/Abdominal GI/Abdominal Exam: Normal Bowel Sounds - Extremities Extremities Exam: No Clubbing Present, No Edema Present, No Cyanosis Present - Neurological Neurological Exam: Alert, Oriented x 3, Normal Gait, No Facial Droop, Speech Intact / Clear, Moves All Extremities Equally Assessment and Plan - Patient Problems (1) Rheumatoid arthritis Current Visit: No Status: Chronic Code(s): M06.9 - Rheumatoid arthritis, unspecified Qualifiers: Rheumatoid arthritis location: unspecified site Rheumatoid factor presence: unspecified presence Qualified Code(s): M06.9 - Rheumatoid arthritis, un specified (2) Fibromyalgia Current Visit: No Status: Chronic Code(s): M79.7 - Fibromyalgia (3) Insomnia Current Visit: No Status: Chronic Code(s): G47.00 - Insomnia, unspecified Qualifiers: Insomnia type: unspecified Qualified Code(s): G47.00 - Insomnia, unspecified (4) Chronic back pain Current Visit: No Status: Chronic Code(s): M54.9 - Dorsalgia, unspecified; G89.29 - Other chronic pain Qualifiers: Back pain location: low back pain Back pain laterality: midline Sciatica presence: with sciatica Sciatica laterality: bilateral sciatica Qualified Code(s): M54.41 - Lumbago with sciatica, right side (5) Arthritis Current Visit: No Status: Chronic Code(s): M19.90 - Unspecified osteoarthritis, unspecified site (6) Anxiety Current Visit: No Status: Chronic Code(s): F41.9 - Anxiety disorder, unspecified (7) Status post lumbar surgery Current Visit: No Status: Acute Code(s): Z98.890 - Other specified postprocedural states - Assessment / Plan Additional Assessment/Plan Details: Patient doing very well from hospitalist perspective. I will check another CBC tomorrow, and if hemoglobin is still in same range, I would recommend holding off from any blood transfusion. She is not symptomatic. No change to the home medications from hospitalist perspective because of the surgery. If hemoglobin is still in the same range tomorrow, would be okay for patient to discharge home from hospitalist perspective, when okay with neurosurgery. PT and OT, pain management, and DVT prophylaxis as per neurosurgery.
--- NOTE | 2018-07-27 15:39 | OTI REPORT ---
Thank you for the referral of Esme Gutierrez. She was seen on 07/27/18 for an occupational therapy inpatient evaluation status post lumbar fusion. SUBJECTIVE: The patient is a 52-year-old female who is being seen secondary to having a lumbar fusion. She reports that she lives in [place] with her grandchildren who can help a bit. She states the oldest one is [id number]. Prior to admission the patient was independent with her ADLs. She did complain of left lower extremity weakness. She has cochlear implants so the patient is slightly hearing impaired. She is a lip reader and needs to be spoken to directly in order for her to understand per her report. The patient's main goal is to get home and be safe with all ADLs. PAST MEDICAL HISTORY: Past medical history can be found in the patient's medical record. OBJECTIVE FINDINGS: General observations: The patient was instructed in her back precautions including no bending/lifting/twisting. Activities of daily living: The patient was instructed of use of the rocket assembly operator, sock aide, bath sponge, and long handled shoe horn, all of which she said she does not have at home and would benefit from. Instruction and demonstration of how to use the equipment was given. Pain: The patient rates her pain as a 5/10 on the verbal analog scale (0=no pain, 10=worst pain). Range of motion: Upper extremity range of motion is within normal limits. Bed mobility: The patient requires mod assist to transfer from supine to sit. ASSESSMENT: Patient would benefit from continued demonstration of adaptive devices and to practice using them to ensure she follows her back precautions. Short-Term Goals: To be met by discharge from inpatient: Patient will be able to use rocket assembly operator and sock aide with minimal verbal cues. Patient will be able to complete all functional transfers with stand by assist including toilet and shower transfers. Patient will be able to stand at sink x5 minutes to increase activity tolerance. Long-Term Goals: To be met following discharge from inpatient: Patient will be independent with dressing self with adaptive devices and follow her back precautions. TREATMENT PLAN: Patient will be seen B.I.D during the week and one time per day over the weekend as an inpatient to address the above goals and objectives. INITIAL TREATMENT: Treatment today consisted of the initial evaluation activities only. DAMION
--- NOTE | 2018-07-27 16:15 | OT.PROG ---
Progress Note Progress Note: S: pt stated she hopes to go home tomorrow. She does raise her two grandchildren. O: pt was seen in her room and observed proper bed mobility using log roll technique Ind to EOB. She was educated on use of sock aid and business development officer and then performed donning/doff of socks using A.e. INd. A: pt participated well and had a good understanding of use of A.E. P: continue per POC.
--- NOTE | 2018-07-27 16:53 | NEURO.PROG ---
Subjective Post Op Day: 2 Pain Management: PO Landrum Catheter: No Flatus: Yes Diet: Regular Ambulating: Yes Additional Details: Awake and alert. Appears comfortable. Eating/drinking/voiding. Ambulating well today after LE US negative. Denies headache, states she is doing well and feels ready to be discharged tomorrow. PLAN: Continue to encourage ambulation. If still doing well tomorrow, discharge to home. Objective : Data - Labs CBC and BMP: 07/27/18 05:15 07/26/18 04:59 - Vital Signs Vital Signs and I&O: Vital Signs - Last Taken Temperature 98.8 F 07/27/18 16:35 Pulse Rate 104 H 07/27/18 16:35 Respiratory Rate 16 07/27/18 16:35 Blood Pressure 102/64 07/27/18 16:35 Pulse Ox 94 07/27/18 16:35 Intake and Output (24hr x 4 totals) 07/25/18 07/26/18 07/27/18 07/28/18 05:59 05:59 05:59 05:59 Intake Total 5535 / 5535 3109 / 3109 2120 / 2120 Output Total 2180 / 2180 4700 / 4700 850 / 850 Balance 3355 / 3355 -1591 / -1591 1270 / 1270
[2018-07-27] MEDS: traZODone Tab 50 MG TAB PO SCH (20:10)
[2018-07-27] MEDS: AMITRIPTYLINE 25 MG TABLET PO SCH (21:05)
[2018-07-28] MEDS: Dexamethasone Tab 4 MG TABLET PO SCH ×2 (00:48→07:51)
[2018-07-28] MEDS: HYDROXYZINE PAMOATE 25 MG CAPSULE PO PRN ×2 (00:48→08:47)
[2018-07-28] MEDS: HYDROmorphone 2 MG TABLET PO PRN ×3 (00:48→08:43)
[2018-07-28 03:02] VITALS: O2SAT 93
[2018-07-28 05:24] LABS: Hematocrit [HCT] 24.2 % (37.0-47.0); Hemoglobin [HGB] 7.8 g/dL (12.0-16.0); MEAN CORPUSCULAR HEMOGLOBIN 30.5 PG (27-31); MEAN CORPUSCULAR HGB CONC 32.2 g/dL (33-37); MEAN CORPUSCULAR VOLUME 94.5 FL (81-99); MEAN PLATELET VOLUME 10.6 FL (7.4-12.2); RED BLOOD COUNT 2.56 10^6/uL (4.20-5.40)
[2018-07-28] MEDS: PANTOPRAZOLE 40 MG TABLET PO SCH (07:51)
--- NOTE | 2018-07-28 07:55 | NEURO.PROG ---
Subjective Post Op Day: 3 Pain Management: PO Landrum Catheter: No Flatus: Yes Diet: Regular Ambulating: Yes Additional Details: Domenica is alert and up in the room this morning. She says her pain is in good control on the dilaudid and tylenol and she denies headache. She feels ready for discharge home. She is afebrile and her V/S are stable. Her H&H are 7/24, but she is asymptomatic with activity and prefers not to receive blood. Her incision is dry and intact. Her dorsi and plantar flexion are 4-5/5 bilateral. Her bilateral thigh paresthesias are present, but improved. She has ambulated the halls and done stairs without difficulty. She has been given neuro post op instructions to include activity with her back brace, not driving while on narcotics and incision care. She was given a post op appointment in [place] on August 14. Plan per hospitalist. From a neuro standpoint she is ready for discharge. Objective : Data - Labs CBC and BMP: 07/28/18 04:45 07/26/18 04:59 - Vital Signs Vital Signs and I&O: Vital Signs - Last Taken Temperature 97.5 F 07/28/18 03:01 Pulse Rate 89 07/28/18 03:01 Respiratory Rate 18 07/28/18 03:01 Blood Pressure 106/66 07/28/18 03:01 Pulse Ox 93 07/28/18 03:01 Intake and Output (24hr x 4 totals) 07/26/18 07/27/18 07/28/18 07/29/18 05:59 05:59 05:59 05:59 Intake Total 5535 / 5535 3109 / 3109 3460 / 3460 Output Total 2180 / 2180 4700 / 4700 850 / 850 Balance 3355 / 3355 -1591 / -1591 2610 / 2610
[2018-07-28 08:18] VITALS: BP 99/64; RESP 16; TEMP 98.7
[2018-07-28] MEDS: LIDOCAINE 700 MG PATCH TOPICAL SCH (08:43)
[2018-07-28] MEDS: ESCITALOPRAM 10 MG TABLET PO SCH (08:48)
[2018-07-28] MEDS: Acetaminophen 1000mg Inj 1,000 MG/100 ML VIAL IV PRN (10:33)
[2018-07-28] MEDS: SILVER SULFADIAZINE 1% 25 GM CREAM TOPICAL SCH (10:40)
--- NOTE | 2018-07-28 11:41 | DCSUMMARY ---
Hospitalization Summary Admit Date: 07/25/2018 Discharge Date: 07/28/18 Primary Diagnosis:: status post lumbar surgery Hospital Course: This very pleasant 52-year-old female who presented on 07/25/2018 for lumbar surgery including hardware removal and some other procedures performed by Dr. Wang. Please see his note regarding procedures performed. Postoperatively, the patient was kept flat for 48 hours due to a dural tear that was repaired, and she did very well otherwise. Her pain was well-controlled. She was ambulatory prior to discharge and met her PT and OT goals prior to discharge. The only issue from a medical standpoint was that she had anemia, but she was a symptomatically and did not want a blood transfusion due to potential risks over potential reaction to blood transfusion. I felt that was very reasonable as the patient had no symptoms. We decided the best thing to do would be to get a blood count on Monday and have her see her primary care physician. She has received postoperative instructions from the neurosurgery team. From a hospitalist perspective she is ready for discharge. She denies any chest pain, shortness breath, nausea or vomiting and states that her back pain is well controlled. The neurosurgery team has taking care of her pain medications. Assessment and Plan: 1. As per discharge assessments noted 2. Disposition: Patient is discharged home. 3. Condition on discharge, stable and improved. 4. Diet: regular diet 5. Activities: resume activities as per neurosurgery 6. Follow-Up: 1. Primary care physician in 4 days 2. Neurosurgery and I believe has an appointment for the patient on August 14 7. Medications at the Time of Discharge: Home Medications Medication Instructions Recorded Confirmed Type amitriptyline 50 mg tablet 50 mg PO QHS 05/15/18 07/24/18 History escitalopram 20 mg tablet 20 mg PO QDAY 05/15/18 07/24/18 History hydroxyzine HCl 25 mg tablet 25 mg PO QID PRN 05/15/18 07/25/18 History lidocaine 1.8 % topical patch 1 patch TOPICAL QDAY 05/15/18 07/24/18 History trazodone 50 mg tablet 100 mg PO QDAY 05/15/18 07/24/18 History Cyclobenzaprine HCl [Flexeril] 10 mg PO TID #60 tab 07/28/18 Rx HYDROmorphone Tab [Dilaudid Tab] 2 mg PO Q4H PRN #90 tab 07/28/18 Rx Ondansetron Odt [Zofran ODT] 4 mg PO Q6H PRN #20 tab 07/28/18 Rx 8. Time, care, counseling and coordination of care for this discharge is less than 30 minutes. Exam - Vitals Vital Signs: Vital Signs Temperature 98.7 F Temperature Source Temporal Artery Scan Pulse Rate [Pulse Oximeter] 90 Pulse Rate 89 Respiratory Rate 16 Blood Pressure [Right Arm] 99/64 Blood Pressure [Left Arm] 124/84 Blood Pressure 119/72 Pulse Ox 93 Oxygen Flow Rate 2 Oxygen Delivery Method Room Air Height 5 ft 3 in Weight 154 lb 6.4 oz - General General Appearance: No Acute Distress, Cooperative - Eye Eye Exam: POSITIVE: No Scleral Icterus - ENT ENT Exam: POSITIVE: Mucous Membranes Moist - Neck Neck Exam: JVP is not Raised - Respiratory Respiratory Exam: POSITIVE: Clear to Auscultation - Bilaterally, Breathing Non Labored - Cardiovascular Cardiovascular Exam: POSITIVE: RRR, No Murmur, No Clicks, No Gallops, No Rubs, No JVD - GI/Abdominal GI/Abdominal Exam: POSITIVE: Normal Bowel Sounds, Non Tender, Non Distended, Soft - Extremities Extremities Exam: POSITIVE: No Clubbing Present, No Edema Present, No Cyanosis Present - Back Additional Back Exam Details: Incision is clean, dry, intact, allie in place. No erythema, no drainage. - Neurological Neurological Exam: POSITIVE: Alert, Oriented x 3, No Facial Droop, Speech Intact / Clear, Moves All Extremities Equally Data Peritnent Studies: 07/26/18 07/26/18 07/28/18 04:59 04:59 04:45 WBC 8.78 Hgb 8.3 L 7.8 L Hct 26.0 L 24.2 L Plt Count 203 Sodium 140 Potassium 4.2 Chloride 107 Carbon Dioxide 26 Anion Gap 7 BUN 18 Creatinine 0.7 Estimated GFR > 60 Glucose 138 H Calcium 7.9 L Patient Problems - Patient Problem List (1) Status post lumbar surgery Current Visit: Yes Status: Acute Code(s): Z98.890 - Other specified postprocedural states Category: Surgical (2) Rheumatoid arthritis Current Visit: Yes Status: Chronic Code(s): M06.9 - Rheumatoid arthritis, unspecified Qualifiers: Rheumatoid arthritis location: unspecified site Rheumatoid factor presence: unspecified presence Qualified Code(s): M06.9 - Rheumatoid arthritis, unspecified Category: Medical (3) Fibromyalgia Current Visit: Yes Status: Chronic Code(s): M79.7 - Fibromyalgia Category: Medical (4) Insomnia Current Visit: Yes Status: Chronic Code(s): G47.00 - Insomnia, unspecified Qualifiers: Insomnia type: unspecified Qualified Code(s): G47.00 - Insomnia, unspecified Category: Medical (5) Chronic back pain Current Visit: Yes Status: Chronic Code(s): M54.9 - Dorsalgia, unspecified; G89.29 - Other chronic pain Qualifiers: Back pain location: low back pain Back pain laterality: midline Sciatica presence: with sciatica Sciatica laterality: bilateral sciatica Qualified Code(s): M54.41 - Lumbago with sciatica, right side Category: Medical (6) Arthritis Current Visit: Yes Status: Chronic Code(s): M19.90 - Unspecified osteoarthritis, unspecified site Category: Medical (7) Anxiety Current Visit: Yes Status: Chronic Code(s): F41.9 - Anxiety disorder, unspecified Category: Medical
[2018-07-28] MEDS: HYDROmorphone 2 MG/1 ML IVP PRN (12:06)
[2018-07-28] MEDS: DIAZEPAM 5 MG TABLET PO PRN (12:06)
--- NOTE | 2018-07-30 11:12 | PTI REPORT ---
Thank you for the referral of Esme Gutierrez. She was seen on 07/27/18 for an inpatient evaluation status post lumbar fusion. SUBJECTIVE: The patient is a 52-year-old female who underwent a lumbar fusion on 07/25/2018. The patient was on hold for therapy on 07/26/2018 secondary to nursing report as the patient was to remain flat all day. The therapist did check with nursing prior to evaluating the patient and they stated that she had been up and moving and was doing well. The patient reports minimal pain at this time. She states that she lives in [place] where she lives with some of her grandchildren. She states that prior to surgery she was fairly independent with all of her ADLs, needing a little help with her socks and shoes at times. The patient states that she was using a single point cane at times for ambulation secondary to weakness of her left lower extremity. The patient denies any falls over the last three months. She states that she does have three stairs with bilateral hand rails to get into and out of her home. Once in her home, everything is on one level. PAST MEDICAL HISTORY: Past medical history can be found in the patient's medical record. OBJECTIVE FINDINGS: General observations: The patient was alert and oriented to setting upon PT arrival. The patient was instructed on post lumbar fusion precautions including no bending/lifting/twisting, to wear her brace whenever she is up, gentle nerve glides, and log rolling in and out of bed. Bed mobility: Once the patient's IV was done, the patient was instructed on a log roll to go from supine to seated edge of bed with moderate verbal cueing. Once sitting up she denied any lightheadedness or dizziness. Transfers: A gait belt was placed around the patient and she was able to perform a sit to stand transfer with stand by assist x1 for safety. Once the patient was up, the back brace was placed around her and she was instructed on how to don and doff the brace. Following ambulation the patient transferred back into her chair with stand by assist x1 for safety. Ambulation: The patient was able to ambulate x150 feet x2 with contact guard assist x1 for safety. ASSESSMENT: The patient has good rehab potential. Problem List: Patient is status post lumbar fusion Generalized weakness Decreased functional mobility Short-Term Goals: To be met by discharge from inpatient: Patient will be able to don and doff her brace safely and independently. Patient will be able to perform a log roll into and out of bed correctly and independently. Patient will be able to ambulate at least 150 feet safely and independently. Patient will be able to ambulate up and down at least five stairs with bilateral hand railings safely and independently. Long-Term Goals: To be met following discharge from inpatient: Patient may be seen by outpatient physical therapy if deemed necessary by her surgeon. TREATMENT PLAN: Patient will be seen B.I.D during the week and one time per day over the weekend as an inpatient to address the above goals and objectives. INITIAL TREATMENT: Treatment today consisted of the initial evaluation followed by one unit of functional activity. Following treatment the patient was left in chair with alarm set and call light within reach. DAMION
--- NOTE | 2018-07-30 11:16 | PT PM DAY ---
Diagnosis : Lumbar Fusion PM - Physical Therapy S: The patient reports she is not having any headaches when she is getting up and overall is doing well. She is hoping to be discharged tomorrow. O: The patient was able to don and doff and adjust her back brace without difficulty and was able to ambulate over 300 feet continuously without difficulty as well as ascend and descend a flight of stairs with an appropriate step over gait pattern. All bed mobility and transfers were with modified independence with use of the back brace. A: The patient is doing very well and will be appropriate for discharge tomorrow. P: Continue seeing patient BID during the week and one time per day over the weekend until discharge. MTDD
--- NOTE | 2018-07-30 11:44 | PT AM DAY ---
Diagnosis : Lumbar Fusion AM - Physical Therapy S: The patient states she is feeling better and she is actually getting out of bed today and she is supposed to be going home. O: The patient ambulated down to therapy with front wheeled walker. Once in the therapy gym, the patient performed the NuStep x5 minutes, clamshells with green theraband x20, green theraband resisted shoulder exercises x20, boxes on the #2 box x15 repetitions bilaterally, sit to stands x15, and hamstring curls with green theraband x20. The patient then ambulated all the way back up to her room with walker. A: The patient is independent with all activities. P: Patient will be discharged this afternoon. TARAD
== END 2018-07-28 12:32 | disposition home or self-care (01) | DRG 460 ==
LOC: OPS 05:17 → MED/SURG 18:43
PROVIDERS: ADMIT Neurological Surgery; ATTEND Neurological Surgery